=== PATIENT | female | born 1965 | race Caucasian/White ===

== ENCOUNTER 2023-04-13 20:56 | Inpatient (IN) | payer MEDICARE, MEDICAID, SELFPAY ==
[2023-04-13] VITALS (15 sets, daily range): BP systolic 122–181; BP diastolic 64–103; BMI 24.9; BMI 24.6
--- NOTE | 2023-04-13 16:54 | ED.GENMED ---
History of Present Illness
<Sepideh Garcia PA-C - Last Filed: 04/15/23 13:44>
General
Chief Complaint: Abnormal Lab Value
Source: director of healthcare systems
Exam Limitations: developmental stage
Time Seen by Provider: 04/13/23 16:36
Nursing documentation reviewed up to this point in time: agreed with
Travel History
Have you had any contact with someone who has COVID-19?: No
Do you have any symptoms of coronavirus? Fever > 100 degrees, chills, cough, shortness of breath, sore throat, loss of taste or smell, muscle aches, or headache?: No
History of Present Illness
History of Present Illness:
PT IS A 57 Y/O F from [facility], lives on own but has / caregiving due to intellectual disability
h/o anxiety, hld
here from for diarrhea (unknown episodes and nature of diarrhea) ,c/o abdominal pain and dark urine today
apparently according to staff with her, pt had none of these symptoms known to them yesterday
pt had labs and urine at showing wbc 17, nitrite pos urine with ketones, bacteria, bili, LE
they told the staff that because of her diarrhea, they couldn't r/o c diff so they sent her to the ER. they also were concerned about her hydration status
pt has not had a known fever, vomiting, back pain, kidney stones, cough.
Past History
<Sepideh Garcia PA-C - Last Filed: 04/15/23 13:44>
Past History
ED Past Medical History: Hypothyroidism, Psychiatric and Other (Mild mental retardation, adjustment disorder)
Social History
Tobacco: Non-smoker
Alcohol: None
Drug: None
Living: other (halfway)
Family History
Family History: Negative Diabetes, Hypertension or CAD
Review of Systems
<GRACIELA Monet Last Filed: 04/15/23 13:44>
Review of Systems
Allergies reviewed?: Yes
Unable to obtain full review of systems at this time due to: other (intellectual delay)
All Other Systems: Not applicable
Phy Exam
<Sepideh Garcia PA-C - Last Filed: 04/15/23 13:44>
Physical Exam
Physical Exam:
GENERAL: Alert , in no apparent distress
very anxious
EYE: pupils equal and reactive
NECK: Supple
ENT: o/p clr, dry mouth
CARDIAC: Regular rate and rhythm .
LUNGS: Clear breath sounds bilaterally, no acute respiratory distress, no wheezes/rales/rhonchi
ABDOMEN: Soft, without focal tenderness, no r/g, no cvat, normal bowel sounds
NEUROLOGICAL: Alert and oriented, no focal neuro deficits
SKIN: Warm and dry, skin intact.
MUSCULOSKELETAL: No edema, well perfused. neg mich's sign
PSYCH: intellectual delay; anxious, uncooperative
Course
<Sepideh Garcia PA-C - Last Filed: 04/15/23 13:44>
Orders/Labs/Results
Orders:
Orders
04/13/23 17:00
CT Abd/Pel (IV only)-DH only Urgent
Comment:
Reason For Exam: uti, abd pain, diarrhea, intellectual delay
04/13/23 17:11
Straight cath- Treatment ONCE
0.9% Sodium Chloride 1000 ml [Nss] 1,000 ml IV BOLUS
04/13/23 17:12
CefTRIAXone [Rocephin] 1,000 mg IV NOW STA
04/13/23 17:14
Ketamine Concentrate Injection [Ketamine HCl] 220 mg IM NOW STA
04/13/23 18:05
Complete Blood Count/With Diff Urgent
Comprehensive Metabolic Panel Urgent
Magnesium Urgent
Comment: ADD ON
04/13/23 18:24
Urinalysis Reflex To Culture Urgent
Date Specimen was Collected: 04/13/23
Time Specimen was Collected: 18:23
Urine Microscopic Reflex Cult Urgent
04/13/23 18:29
Sterile Water [Sterile Water For Injection] 10 ml .ROUTE .[facility]-MED ONE
04/13/23 18:53
Blood Culture Q30M
MARIAM Source: Blood/Venous
Specimen Description:
Blood Culture Q30M
MARIAM Source: Blood/Venous
Specimen Description:
04/13/23 19:09
STOOL [C difficile Antigen & Toxins] Urgent
MARIAM Source: Feces/Stool
Specimen Description:
Stool Culture Urgent
MARIAM Source: Feces/Stool
Specimen Description:
MetroNIDAZOLE 500 MG/100 ML [Flagyl 500 mg] 100 ml IV NOW
04/13/23 20:24
Lactate Level [Lactic Acid] Urgent
04/13/23 20:25
Admit/Transfer Patient As Directed
Co-Sign Provider:
Level of Care: Inpatient admission
Assign to:: Medical/Surgical
Physician / Group: Aide Christianson
Diagnosis: colitis
Reason for Hospitalization: colitis
Expected length of stay greater than two midnights?: Yes
ELOS- Estimated Length of Stay in days: 3
I certify the patient meets the requirements for IP care: Yes
04/13/23 20:30
Code Status As Directed
Resuscitation Status: Full Code
04/13/23 20:38
Lovelock Carbonate Extended Rel [Lithobid (Extended Release)] 600 mg PO NOW STA
04/13/23 21:23
0.9% Sodium Chloride 1000 ml [Nss] 1,000 ml IV 100 mls/hr
Acetaminophen [Tylenol] 650 mg PO Q4HPRN PRN
Melatonin 3 mg PO HSPRN PRN
04/13/23 21:23
Activity As Directed
Activity Level: As Tolerated
Vital Signs As Directed
Frequency: Per unit guidelines
DX Deep Vein Thrombosis Video Routine
04/13/23 22:00
Quetiapine Fumarate [Seroquel] 200 mg PO HS
04/14/23 02:00
MetroNIDAZOLE 500 MG/100 ML [Flagyl 500 mg] 100 ml IV Q8H
04/14/23 07:16
Basic Metabolic Panel IN AM
Complete Blood Count/With Diff IN AM
Lovelock IN AM
Magnesium IN AM
04/14/23 08:00
Atorvastatin [Lipitor] 20 mg PO DAILY
Budesonide [Pulmicort] 0.5 mg INH R BID
Clonazepam [Klonopin] 0.5 mg PO DAILY
Pantoprazole [Protonix] 40 mg PO DAILY
Quetiapine Fumarate [Seroquel] 50 mg PO BID AT 0800,1700
04/14/23 18:00
CefTRIAXone [Rocephin] 1,000 mg IV Q24H
Enoxaparin Sodium [Lovenox] 40 mg SC QPM
04/14/23 20:00
Lovelock Carbonate Extended Rel [Lithobid (Extended Release)] 600 mg PO DAILY@1999
Abnormal Lab Results
04/13/23 04/13/23
18:05 18:24
WBC 20.6 H 10^3/uL
(4.8-10.8)
MPV 10.9 H fL
(7.4-10.4)
Abs Immat Gran (auto) 0.1 H 10^3/uL
(0-0.05)
Absolute Neuts (auto) 18.7 H 10^3/uL
(1.4-6.5)
Absolute Lymphs (auto) 0.6 L 10^3/uL
(1.2-3.4)
Absolute Monos (auto) 1.1 H 10^3/uL
(0.1-0.6)
Immature Gran % 0.7 H %
(0-0.5)
Neutrophils % 90.6 H %
(42.2-75.2)
Lymphocytes % 3.0 L %
(20.5-51.1)
Sodium 133 L mmol/L
(135-145)
Carbon Dioxide 17 L mmol/L
(22-30)
Glucose 155 H mg/dl
(70-99)
Magnesium 2.4 H mg/dl
(1.6-2.3)
Alkaline Phosphatase 128 H U/L
(38-126)
Urine Ketones Trace A
(Negative)
Urine Bilirubin 1+ A
(Negative)
Urine Urobilinogen 2+ A
(Neg - 1+)
Leukocyte Esterase Rfl Trace A
(Negative)
04/13/23 18:05
04/13/23 18:05
Vital Signs
Initial and Last Documented VS:
Initial Vital Signs
Temp Pulse Resp Pulse Ox
97.7 F 89 18 96
04/13/23 15:41 04/13/23 15:41 04/13/23 15:41 04/13/23 15:41
Last Documented Vital Signs
Temp Pulse Resp BP Pulse Ox
97.5 F 94 16 153/94 97
04/15/23 07:25 04/15/23 08:41 04/15/23 08:41 04/15/23 07:25 04/15/23 08:41
<Chano Hennessy MD - Last Filed: 04/13/23 19:49>
Orders/Labs/Results
Orders:
Orders
04/13/23 17:00
CT Abd/Pel (IV only)-DH only Urgent
Comment:
Reason For Exam: uti, abd pain, diarrhea, intellectual delay
04/13/23 17:11
Straight cath- Treatment ONCE
0.9% Sodium Chloride 1000 ml [Nss] 1,000 ml IV BOLUS
04/13/23 17:12
CefTRIAXone [Rocephin] 1,000 mg IV NOW STA
04/13/23 17:14
Ketamine Concentrate Injection [Ketamine HCl] 220 mg IM NOW STA
04/13/23 18:05
Complete Blood Count/With Diff Urgent
Comprehensive Metabolic Panel Urgent
Magnesium Urgent
Comment: ADD ON
04/13/23 18:24
Urinalysis Reflex To Culture Urgent
Date Specimen was Collected: 04/13/23
Time Specimen was Collected: 18:23
Urine Microscopic Reflex Cult Urgent
04/13/23 18:29
Sterile Water [Sterile Water For Injection] 10 ml .ROUTE .[facility]
04/13/23 18:53
Blood Culture Q30M
MARIAM Source: Blood/Venous
Specimen Description:
Blood Culture Q30M
MARIAM Source: Blood/Venous
Specimen Description:
04/13/23 19:09
STOOL [C difficile Antigen & Toxins] Urgent
MARIAM Source: Feces/Stool
Specimen Description:
Stool Culture Urgent
MARIAM Source: Feces/Stool
Specimen Description:
MetroNIDAZOLE 500 MG/100 ML [Flagyl 500 mg] 100 ml IV NOW
04/13/23 20:24
Lactate Level [Lactic Acid] Urgent
04/13/23 20:25
Admit/Transfer Patient As Directed
Co-Sign Provider:
Level of Care: Inpatient admission
Assign to:: Medical/Surgical
Physician / Group: Aide Christianson
Diagnosis: colitis
Reason for Hospitalization: colitis
Expected length of stay greater than two midnights?: Yes
ELOS- Estimated Length of Stay in days: 3
I certify the patient meets the requirements for IP care: Yes
04/13/23 20:30
Code Status As Directed
Resuscitation Status: Full Code
04/13/23 20:38
Lovelock Carbonate Extended Rel [Lithobid (Extended Release)] 600 mg PO NOW STA
04/13/23 21:23
0.9% Sodium Chloride 1000 ml [Nss] 1,000 ml IV 100 mls/hr
Acetaminophen [Tylenol] 650 mg PO Q4HPRN PRN
Melatonin 3 mg PO HSPRN PRN
04/13/23 21:23
Activity As Directed
Activity Level: As Tolerated
Vital Signs As Directed
Frequency: Per unit guidelines
DX Deep Vein Thrombosis Video Routine
04/13/23 22:00
Quetiapine Fumarate [Seroquel] 200 mg PO HS
04/14/23 02:00
MetroNIDAZOLE 500 MG/100 ML [Flagyl 500 mg] 100 ml IV Q8H
04/14/23 07:16
Basic Metabolic Panel IN AM
Complete Blood Count/With Diff IN AM
Lovelock IN AM
Magnesium IN AM
04/14/23 08:00
Atorvastatin [Lipitor] 20 mg PO DAILY
Budesonide [Pulmicort] 0.5 mg INH R BID
Clonazepam [Klonopin] 0.5 mg PO DAILY
Pantoprazole [Protonix] 40 mg PO DAILY
Quetiapine Fumarate [Seroquel] 50 mg PO BID AT 0800,1700
04/14/23 18:00
CefTRIAXone [Rocephin] 1,000 mg IV Q24H
Enoxaparin Sodium [Lovenox] 40 mg SC QPM
04/14/23 20:00
Lovelock Carbonate Extended Rel [Lithobid (Extended Release)] 600 mg PO DAILY@1999
Abnormal Lab Results
04/13/23 04/13/23
18:05 18:24
WBC 20.6 H 10^3/uL
(4.8-10.8)
MPV 10.9 H fL
(7.4-10.4)
Abs Immat Gran (auto) 0.1 H 10^3/uL
(0-0.05)
Absolute Neuts (auto) 18.7 H 10^3/uL
(1.4-6.5)
Absolute Lymphs (auto) 0.6 L 10^3/uL
(1.2-3.4)
Absolute Monos (auto) 1.1 H 10^3/uL
(0.1-0.6)
Immature Gran % 0.7 H %
(0-0.5)
Neutrophils % 90.6 H %
(42.2-75.2)
Lymphocytes % 3.0 L %
(20.5-51.1)
Sodium 133 L mmol/L
(135-145)
Carbon Dioxide 17 L mmol/L
(22-30)
Glucose 155 H mg/dl
(70-99)
Magnesium 2.4 H mg/dl
(1.6-2.3)
Alkaline Phosphatase 128 H U/L
(38-126)
Urine Ketones Trace A
(Negative)
Urine Bilirubin 1+ A
(Negative)
Urine Urobilinogen 2+ A
(Neg - 1+)
Leukocyte Esterase Rfl Trace A
(Negative)
04/13/23 18:05
04/13/23 18:05
Vital Signs
Initial and Last Documented VS:
Initial Vital Signs
Temp Pulse Resp Pulse Ox
97.7 F 89 18 96
04/13/23 15:41 04/13/23 15:41 04/13/23 15:41 04/13/23 15:41
Last Documented Vital Signs
Temp Pulse Resp BP Pulse Ox
97.5 F 94 16 153/94 97
04/15/23 07:25 04/15/23 08:41 04/15/23 08:41 04/15/23 07:25 04/15/23 08:41
<Sepideh Garcia PA-C - Last Filed: 04/15/23 13:44>
MDM/Problems Addressed
Differential Diagnosis Includes:
uti, kidney stone, colitis, sepsis
MDM/Problems Addressed:
57 y/o F with h/o intellectual delay and severe anxiety here from urgetn care with abnormal labs
noticed by staff to have a few episodes of diarrhea today
she also compalined of abd pain
but the staff says that she is afraid to say that she has pain or sypmtoms because she doesn't want to stay in the hospital
pt has also had very dark urine
no fever, vomiting
pt appears vyery anxious
would not move from the chair to the stretcher for exam
had to convince her to take her coat off.
examinng her in the chair, pt was not found ot have focal tenderness
pt was seen by ed attending
felt most safe to evaluate with CT imaging
the concern for c diff does not seem likely based on a few episodes of dairrhea today only; but the concern being about infected stone or pyelo is more likely
so given her anxiety and inability to cooperate, we will need to sedate her for this testing
the plan is to get IM ketamine and then obtain IV placement with labs and CT while she is sedated.
1830 - ketamine im and IV placement and CT went well
pt is sedated and stable vitals
mild tachy originally but pt was very anxious and crying prior to this procedure
signed out to ED attending pending ct.
<Sepideh Garcia PA-C - Last Filed: 04/15/23 13:44>
*Critical Care Note
Total Time (30-74mins, 75-104mins- exclusive of procedures): Not Applicable
ED Attending Note
<Sepideh Garcia PA-C - Last Filed: 04/15/23 13:44>
-
Portions of this chart may have been created with voice recognition software.� Occasional wrong word or��sound alike� substitutions may have occurred due to the inherent limitations of voice recognition software.
<Chano Hennessy MD - Last Filed: 04/13/23 19:49>
ED Attending Note
Patient seen and examined by attending physician: Yes
ED Attending Note:
I have seen and evaluated the patient with a [id number] encounter. I have spoken to the advance practicer provider and involved in the medical history, the physical exam, medical decision making.
Evaluation and management service: agree unless noted differently below.
Results interpretation: agree unless noted differently below.
Focused HPI: 57-year-old female with a past medical history of hyperlipidemia, anxiety, intellectual disability presents to the emergency room from custodial accompanied by staff members for evaluation of abdominal pain. Unclear onset patient is
very anxious and does not meaningfully participate in history. Apparently staff says that she started complaining today but says that she typically will hide symptoms until they are quite severe. Today also had some diarrhea. She had some dark
urine today as well. Initially went to urgent care and there was a question of UTI on urgent care urinalysis however with her abdominal pain she was sent to the ER for evaluation. No fever or chills. No vomiting.
Physical exam: Very anxious. Her abdomen is soft, tender to palpation across the lower abdomen. She is tachycardic but has otherwise normal vitals.
Medical Decision Makin-year-old female with intellectual disability presents for abdominal pain with diarrhea. Question of UTI at urgent care. Very anxious�gets agitated and restless in the hospital now on chronic testing here. Sedated with
ketamine to help facilitate testing. Labs sent off including CBC which showed a leukocytosis to 20 with 90% neutrophils. CMP no clinically significant abnormalities. Urinalysis negative for infection here. Sent for CT of the abdomen pelvis which
shows findings consistent with colitis. With leukocytosis and tachycardia we sent blood cultures off. Will cover with IV antibiotics. Discussed with GI for consultation. Discussed with hospitalist for admission.
Discharge Plan
Departure
Patient Disposition: Admit
Date of Disposition: 04/13/23
Time of Disposition: 19:44
Admit to doctor: Sammy
Presentation/result/management discussed w/ accepting MD/DO: Hospitalist
Discharge Problem:
Colitis, Sepsis
Interventions
Interventions:
*Risk Screen - Suicide Last Done: 04/13/23 21:59
*General Assessment Last Done: 04/13/23 21:28
*Neglect/Abuse Screening Last Done: 04/13/23 21:28
ED- Fall Risk Assessment Last Done: 04/13/23 21:28
*ED COVID-19 Vaccine History Last Done: 04/13/23 21:28
*Nursing Disposition Last Done: 04/13/23 21:28
Discharge Date and Time
Discharge Date/Time: 04/13/23 21:29
[2023-04-13] MEDS: KETAMINE HCL 220 MG IM (18:00)
[2023-04-13 18:19] LABS: % Basophils 0.2 % (0-2); % Immature Granulocytes 0.7 % (0-0.5); % Monocytes 5.5 % (1.7-9.3); % Neutrophils 90.6 % (42.2-75.2); Absolute Basophils 0.1 10^3/uL (0-0.2); Absolute Immature Granulocytes 0.1 10^3/uL (0-0.05); Absolute Lymphocytes 0.6 10^3/uL (1.2-3.4); Absolute Monocytes 1.1 10^3/uL (0.1-0.6); Absolute Neutrophils 18.7 10^3/uL (1.4-6.5); Hemoglobin 13.9 g/dL (12.0-16.0); Mean Corp Hgb Conc. 34.8 g/dL (33.0-37.0); Mean Corpuscular Hgb 30.8 pg (27.0-31.0); Mean Corpuscular Volume 88.5 fL (81.0-99.0); Mean Platelet Volume 10.9 fL (7.4-10.4); Nucleated Red Blood Cells % 0 %; Platelet Count 276 10^3/uL (130-400); Red Blood Cell Count 4.52 10^6/uL (4.20-5.40); Red Cell Dist. Width 13.7 % (11.5-14.5); White Blood Cell Count 20.6 10^3/uL (4.8-10.8)
[2023-04-13] MEDS: NSS 1000 IV ×2 (18:23→22:22)
[2023-04-13 18:32] LABS: ALT (SGPT) 32 U/L (0-35); AST (SGOT) 36 U/L (14-36); Albumin 4.7 g/dl (3.5-5.0); Alkaline Phosphatase 128 U/L (38-126); Blood Urea Nitrogen 16 mg/dl (7-17); Calcium 9.9 mg/dl (8.4-10.2); Carbon Dioxide 17 mmol/L (22-30); Chloride 104 mmol/L (98-107); Estimated Creatinine Clearance 57 ml/min; Glucose 155 mg/dl (70-99); Potassium 4.4 mmol/L (3.5-5.1); Sodium 133 mmol/L (135-145); Total Bilirubin 0.6 mg/dl (0.2-1.3); Total Protein 7.6 g/dl (6.3-8.2); eGFR > 60.00
[2023-04-13 18:33] LABS: Urine Albumin Trace (Neg - Trace); Urine Bilirubin 1+ (Negative); Urine Character Clear (Clear); Urine Color Amber; Urine Glucose Negative (Negative); Urine Ketone Trace (Negative); Urine Leukocyte Trace (Negative); Urine Nitrite Negative (Negative); Urine Occult Blood Negative (Negative); Urine Specific Gravity 1.015 (<1.030); Urine Urobilinogen 2+ (Neg - 1+)
[2023-04-13 18:46] LABS: Urine Red Blood Cell None Seen /HPF (0-2); Urine Squamous Cell 0-2 /LPF (Few); Urine White Cell 0-2 /HPF (0-5)
[2023-04-13] MEDS: ROCEPHIN 1000 MG IV (18:54)
[2023-04-13] MEDS: FLAGYL 500 MG 100 IV (19:19)
--- NOTE | 2023-04-13 20:01 | HPS.HSE ---
Family Physician
-
Family Physician: Guanako Reza PA-C
Chief Complaint
-
diarrhea
History of Present Illness
Ms. Maritza Pickard is a 57 yo woman (lives on own with 19/09 caregiving due to intellectual disability) with hx hypothyroidism sent to the ER for diarrhea and abdominal pain.
History mainly obtained from caregiver at bedside. Patient has left lower quadrant abdominal discomfort. She had diarrhea about 3-4 times today. Not black or bloody. No fevers or chills.
She denies chest pain or shortness of breath.
Currently patient requesting diet coke.
Patient has her own house; has 19/09 caregivers.
Medical History
Past Medical History
Past Medical History: Reports Other ((lives on own with 19/09 caregiving due to intellectual disability) with hx hypothyroidism)
Past Surgical History: Reports None
Social History
Tobacco: Non-smoker
Alcohol: None
Family History
Family History: Not pertinent
Allergies / Home Medications
Allergies reflects when Allergies were last updated in [facility].
Home Medications with original date entered in [facility]
Allergy/Medication List:
Allergies
Allergy/AdvReac Type Severity Reaction Status Date / Time
aripiprazole [From Abilify] Allergy Unknown Unknown Verified 04/13/23 15:40
Anticholinergics Allergy Unknown Verified 04/13/23 15:40
*RETIRED-06/13/12
[Anticholinergics - Other]
poison nurys extract Allergy Unknown Verified 04/13/23 15:45
poison oak extract Allergy Unknown Verified 04/13/23 15:45
risperidone [From Risperdal] Allergy Eyes going Verified 04/13/23 15:40
up in head
- couldn't
bring back
down
triazolam [From Halcion] Allergy Unknown Verified 04/13/23 15:40
DPT Allergy Unknown Uncoded 11/17/20 09:53
MELARILL Allergy Unknown Uncoded 11/17/20 09:53
non-generic clonidine Allergy Unknown Uncoded 11/17/20 09:53
Home Medications
clonazepam 0.5 mg tablet 0.5 mg PO DAILY 07/13/20
lithium carbonate 300 mg tablet,extended release 600 mg PO DAILY@199907/13/20
quetiapine 100 mg tablet 200 mg PO HS 07/13/20
quetiapine 50 mg tablet (Seroquel) 50 mg PO BID 07/13/20
budesonide 0.5 mg/2 mL suspension for nebulization 0.5 mg inhalation R BID 04/13/23
melatonin 3 mg tablet 3 mg PO HS PRN sleep 04/13/23
multivitamin (One Daily Essential tablet) 1 tab PO DAILY 04/13/23
omeprazole 20 mg capsule,delayed release 20 mg PO DAILY 04/13/23
simvastatin 40 mg tablet 40 mg PO DAILY 04/13/23
Review of Systems
-
History Source: Patient
A 12 point ROS was completed and negative except as noted: Yes
Physical Exam
Vital Signs
Vital Signs
Temp Pulse Resp BP Pulse Ox
97.7 F 108 23 126/78 100
04/13/23 15:41 04/13/23 19:20 04/13/23 19:20 04/13/23 19:20 04/13/23 19:20
Physical Exam
General: Comfortable and Other (in no acute distress)
HEENT: PERRLA
Respiratory: Clear; No Wheezes
Cardiac: S1/S2 and Regular Rhythm
GI: Other (mildly tender LLQ, no rebound or guarding )
Musculoskeletal: No Edema
Skin: Warm and Dry; No Rash
Neuro: AO x 3 and Other (intellectual disability; repetitive about asking for diet coke )
Psych: Calm
Laboratory Results
-
04/13/23 18:05
04/13/23 18:05
Laboratory Results
Total Bilirubin 0.6 mg/dl (0.2-1.3) 04/13/23 18:05
AST 36 U/L (14-36) 04/13/23 18:05
ALT 32 U/L (0-35) 04/13/23 18:05
Alkaline Phosphatase 128 U/L (38-126) H 04/13/23 18:05
Data Reviewed
-
Diagnostic Radiology: Report Reviewed by me
Lab Data: Labs Reviewed by me
Impression/Plan
-
Ms. Maritza Pickard is a 57 yo woman (lives on own with 19/09 caregiving due to intellectual disability) with hx hypothyroidism sent to the ER for diarrhea and abdominal pain which started earlier today.
Triage VS: T 36.5, P 89, RR 18, SpO2 96%
LABS: WBC 20.6, Hg 13.9, PLT 276, Na 133, K+ 4.4, CO2 17, Glucose 155
CT A/P - with IV, no oral
IMPRESSION:
Limited evaluation without oral contrast and without ability to obtain delayed postintravenous contrast images.
Suggestion of some areas of wall thickening of the large bowel, including the descending colon which at least must be SUSPICIOUS FOR COLITIS. No intestinal obstruction, free air or gross findings to suggest colonic pneumatosis.
MAR: Ceftriaxone, Flagyl, IVF
Diarrhea
Colitis
Sepsis 2/2 Colitis (WBC, Elevated RR)
non-gap metabolic acidosis
-F/U C. Diff and stool culture (not yet collected)
-admit to med/surg
-IVF
-IV Ceftriaxone/Flagyl
-clears for now
-consider GI consult if slow improvement
hX aNxiety/Depression
-WASTEWATER DESIGN ENGINEER Clonazepam
WASTEWATER DESIGN ENGINEER Quetiapine
-WASTEWATER DESIGN ENGINEER LIthium
HLD
-WASTEWATER DESIGN ENGINEER Statin
DVT PPx Lovenox subQ
FULL CODE
[2023-04-13 20:47] LABS: Lactic Acid 1.5 mmol/L (0.7-2.0)
[2023-04-13] MEDS: LITHOBID (EXTENDED RELEASE) 600 MG PO (20:54)
[2023-04-13] MEDS: ZOFRAN 4 MG IV (22:21)
[2023-04-13] MEDS: SEROQUEL 200 MG PO (22:21)
[2023-04-13 23:34] LABS: Magnesium 2.4 mg/dl (1.6-2.3)
[2023-04-14] MEDS: FLAGYL 500 MG 100 IV ×3 (01:34→17:16)
[2023-04-14] MEDS: PULMICORT 0.5 MG INH ×2 (07:36→19:36)
[2023-04-14 08:08] LABS: % Basophils 0.3 % (0-2); % Eosinophils 0.2 % (0-6); % Immature Granulocytes 0.4 % (0-0.5); % Lymphocytes 13.8 % (20.5-51.1); % Neutrophils 75.3 % (42.2-75.2); Absolute Immature Granulocytes 0.1 10^3/uL (0-0.05); Absolute Lymphocytes 1.7 10^3/uL (1.2-3.4); Absolute Monocytes 1.2 10^3/uL (0.1-0.6); Absolute Neutrophils 9.3 10^3/uL (1.4-6.5); Hemoglobin 12.1 g/dL (12.0-16.0); Mean Corp Hgb Conc. 34.6 g/dL (33.0-37.0); Mean Corpuscular Hgb 31.2 pg (27.0-31.0); Mean Corpuscular Volume 90.2 fL (81.0-99.0); Nucleated Red Blood Cells % 0 %; Red Blood Cell Count 3.88 10^6/uL (4.20-5.40); Red Cell Dist. Width 13.7 % (11.5-14.5); White Blood Cell Count 12.3 10^3/uL (4.8-10.8)
[2023-04-14 08:21] VITALS: BP 108/63
[2023-04-14 08:56] LABS: Blood Urea Nitrogen 10 mg/dl (7-17); Calcium 8.8 mg/dl (8.4-10.2); Carbon Dioxide 16 mmol/L (22-30); Chloride 113 mmol/L (98-107); Estimated Creatinine Clearance 57 ml/min; Glucose 94 mg/dl (70-99); Lithium 1.2 mmol/L (0.6-1.2); Magnesium 2.2 mg/dl (1.6-2.3); Potassium 4.1 mmol/L (3.5-5.1); Sodium 137 mmol/L (135-145); eGFR > 60.00
[2023-04-14] MEDS: NSS 1000 IV (09:12)
[2023-04-14] MEDS: KLONOPIN 0.5 MG PO (09:13)
[2023-04-14] MEDS: SEROQUEL 50 MG PO ×2 (09:13→17:15)
[2023-04-14] MEDS: PROTONIX 40 MG PO (09:13)
[2023-04-14] MEDS: LIPITOR 20 MG PO (09:13)
[2023-04-14 09:26] LABS: Mean Platelet Volume 11.3 fL (7.4-10.4); Platelet Count 219 10^3/uL (130-400)
--- NOTE | 2023-04-14 14:12 | W.PN.HOSP.TC ---
Today's Communication/Plan
-
FLD
IVF
abx
cultures
monitor bicarb
Assessment / Plan
Assessment / Plan
General: Comfortable and Other (in no acute distress)
HEENT: PERRLA
Respiratory: Clear; No Wheezes
Cardiac: S1/S2 and Regular Rhythm
GI: Other (mildly tender LLQ, no rebound or guarding )
Musculoskeletal: No Edema
Skin: Warm and Dry; No Rash
Neuro: AO x 3 and Other (intellectual disability; repetitive about asking for diet coke )
Psych: Calm
Diarrhea
Colitis
Sepsis 2/2 Colitis (WBC, Elevated RR)
non-anion gap metabolic acidosis
-F/U C. Diff and stool culture (not yet collected)
-admit to med/surg
-IVF
-IV Ceftriaxone/Flagyl
-Advance to FLD
-consider GI consult if slow improvement
hX aNxiety/Depression
-DICTAPHONE MECHANIC Clonazepam
DICTAPHONE MECHANIC Quetiapine
-DICTAPHONE MECHANIC LIthium
HLD
-DICTAPHONE MECHANIC Statin
DVT PPx Lovenox subQ
FULL CODE
Anticipated Discharge: 24 - 48 hours
Subjective/Interval History
-
Date of Service: April 14, 2023
Pain improved, no diarrhea this morning
Objective Data
-
Labs:
Laboratory Results
04/14/23
07:16
WBC 12.3 H
Hgb 12.1
Hct 35.0 L
Plt Count 219 D
Sodium 137
Potassium 4.1
Chloride 113 H
Carbon Dioxide 16 L
BUN 10
Creatinine 0.8
Glucose 94
Calcium 8.8
Vital Signs:
Vital Signs
Temp Pulse Resp BP Pulse Ox
98 F 96 18 108/63 97
04/14/23 08:21 04/14/23 08:21 04/14/23 08:21 04/14/23 08:21 04/14/23 08:21
Review of Systems
-
History Source: Patient
All other systems: Not reviewed unless documented
Data Reviewed
-
CT Scan: Image personally visualized and interpreted and Report Reviewed by me
Labs: Labs Reviewed by me
[2023-04-14 15:54] VITALS: BP 124/78
[2023-04-14] MEDS: LR 1000 IV (16:18)
--- NOTE | 2023-04-14 16:43 | CM ---
Patient seen bedside with private rn patient care and residential supply chain procurement manager Doug.
Patient lives in her own apartment with 19/09 care.
Patient ambulates without assistive devices.
Patient able to answer questions when asked.
PCP: Dr Reza
Pharmacy: [facility]
Per Doug, no report needs to be called, just discharge instuctions.
Plan: home no needs anticipated.
[2023-04-14] MEDS: LOVENOX 40 MG SC (17:14)
[2023-04-14] MEDS: ROCEPHIN 1000 MG IV (17:15)
[2023-04-14] MEDS: STERILE WATER FOR INJECTION 10 ML IV (17:15)
[2023-04-14] MEDS: LITHOBID (EXTENDED RELEASE) 600 MG PO (20:48)
[2023-04-14] MEDS: SEROQUEL 200 MG PO (20:49)
[2023-04-14 23:35] VITALS: BP 136/87
[2023-04-15] MEDS: FLAGYL 500 MG 100 IV ×2 (01:24→09:55)
[2023-04-15] MEDS: LR 1000 IV ×2 (01:24→09:56)
[2023-04-15 06:32] LABS: Hematocrit 37.3 % (37.0-47.0); Hemoglobin 12.5 g/dL (12.0-16.0); Mean Corp Hgb Conc. 33.5 g/dL (33.0-37.0); Mean Corpuscular Hgb 30.3 pg (27.0-31.0); Mean Corpuscular Volume 90.5 fL (81.0-99.0); Mean Platelet Volume 11.1 fL (7.4-10.4); Platelet Count 229 10^3/uL (130-400); Red Blood Cell Count 4.12 10^6/uL (4.20-5.40); Red Cell Dist. Width 13.6 % (11.5-14.5); White Blood Cell Count 8.9 10^3/uL (4.8-10.8)
[2023-04-15 07:09] LABS: ALT (SGPT) 22 U/L (0-35); AST (SGOT) 32 U/L (14-36); Albumin 3.3 g/dl (3.5-5.0); Alkaline Phosphatase 92 U/L (38-126); Blood Urea Nitrogen 8 mg/dl (7-17); Calcium 9.4 mg/dl (8.4-10.2); Carbon Dioxide 20 mmol/L (22-30); Chloride 108 mmol/L (98-107); Estimated Creatinine Clearance 65 ml/min; Glucose 107 mg/dl (70-99); Magnesium 1.9 mg/dl (1.6-2.3); Sodium 140 mmol/L (135-145); Total Bilirubin 0.5 mg/dl (0.2-1.3); Total Protein 5.7 g/dl (6.3-8.2); eGFR > 60.00
[2023-04-15 07:25] VITALS: BP 153/94
[2023-04-15] MEDS: SEROQUEL 50 MG PO (07:58)
[2023-04-15] MEDS: KLONOPIN 0.5 MG PO (07:58)
[2023-04-15] MEDS: LIPITOR 20 MG PO (07:58)
[2023-04-15] MEDS: PROTONIX 40 MG PO (07:58)
[2023-04-15] MEDS: PULMICORT 0.5 MG INH (08:39)
--- NOTE | 2023-04-15 11:46 | CM ---
Patient seen bedside with caregiver, Adelaida, discussed plan for discharge today. Adelaida will be providing transportation home. CM left voicemail for patients primary contact, Doug, to discuss IMM and discharge. CM will continue to follow for
discharge planning needs.
Plan; home with / caregivers, Adelaida to provide transportation home.
--- NOTE | 2023-04-15 12:23 | W.PN.HOSP.TC ---
Addendum entered and electronically signed by Terry Monroe MD 04/15/23 15:54:
[id number]
Original Note:
Today's Communication/Plan
-
Complete 10-day course of antibiotics, cefdinir and Flagyl for additional 9 days
Follow BMP outpatient
Low residue diet
GI follow-up outpatient
Assessment / Plan
Assessment / Plan
General: Comfortable and Other (in no acute distress)
HEENT: PERRLA
Respiratory: Clear; No Wheezes
Cardiac: S1/S2 and Regular Rhythm
GI: Other (mildly tender LLQ, no rebound or guarding )
Musculoskeletal: No Edema
Skin: Warm and Dry; No Rash
Neuro: AO x 3 and Other (intellectual disability; repetitive about asking for diet coke )
Psych: Calm
Diarrhea
Colitis
Sepsis 2/2 Colitis
non-anion gap metabolic acidosis
-improved with abx
-DC to complete 10 day course as rapid improvement; DC on cefdinir 300mg BID and Flagyl 500mg q8h x 9 additional days to complete 10 day course
-IVF
Bicarb improving, f/u bmp outpatient
LRD
-GI f/u outpatient
hX aNxiety/Depression
-PUBLIC RELATIONS SPECIALIST Clonazepam
PUBLIC RELATIONS SPECIALIST Quetiapine
-PUBLIC RELATIONS SPECIALIST LIthium
HLD
-PUBLIC RELATIONS SPECIALIST Statin
DVT PPx Lovenox subQ
FULL CODE
More than 30 minutes spent in discharge including
Final examination of the patient
Summarizing hospital stay
Instructions for continuing care to all relevant caregivers
Preparation of discharge records, prescriptions, and referral forms
Total time spent (35 in minutes):
Anticipated Discharge: Today
Subjective/Interval History
-
Date of Service: April 15, 2023
Diarrhea resolved, patient feeling well. Tolerating diet
Objective Data
-
Labs:
Laboratory Results
04/15/23 04/15/23
05:49 11:49
WBC 8.9
Hgb 12.5
Hct 37.3
Plt Count 229
Sodium 140 Pending
Potassium 4.0 Pending
Chloride 108 H Pending
Carbon Dioxide 20 L Pending
BUN 8 Pending
Creatinine 0.7 Pending
Glucose 107 H Pending
Calcium 9.4 Pending
Total Bilirubin 0.5
AST 32
ALT 22
Alkaline Phosphatase 92
Vital Signs:
Vital Signs
Temp Pulse Resp BP Pulse Ox
97.5 F 94 16 153/94 97
04/15/23 07:25 04/15/23 08:41 04/15/23 08:41 04/15/23 07:25 04/15/23 08:41
I&O
04/14/23 04/15/23 04/16/23
06:59 06:59 06:59
Intake Total 1440 / 1440
Balance 1440 / 1440
Review of Systems
-
History Source: Patient
All other systems: Not reviewed unless documented
Data Reviewed
-
CT Scan: Image personally visualized and interpreted and Report Reviewed by me
Labs: Labs Reviewed by me
--- NOTE | 2023-04-15 12:27 | W.DS.TRANS ---
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
-
Discharge Instructions:
Discharge Diagnosis/Procedures
Diarrhea
Colitis
Sepsis 2/2 Colitis
non-anion gap metabolic acidosis
Diet Low Fat,Low Cholesterol,Low Residue
Additional Diets low residue diet x 2 weeks
Activity As tolerated
Blood Work BMP in 2 to 3 days following up bicarb
Instructions:
Stand-Alone Forms:
Changes to Home Medications: Yes
Discharge Medications:
DC Medications w/original date entered in [employer] Interpreting
clonazepam 0.5 mg tablet 0.5 mg PO DAILY Mental Health/Anxiety 07/13/20
lithium carbonate 300 mg tablet,extended release 600 mg PO DAILY@1999 Mental Health/Anxiety 07/13/20
quetiapine 100 mg tablet 200 mg PO HS Mental Health/Anxiety 07/13/20
quetiapine 50 mg tablet (Seroquel) 50 mg PO BID Mental Health/Anxiety 07/13/20
budesonide 0.5 mg/2 mL suspension for nebulization 0.5 mg inhalation R BID Lung/Breathing Issues 04/13/23
melatonin 3 mg tablet 3 mg PO HS PRN sleep 04/13/23
multivitamin (One Daily Essential tablet) 1 tab PO DAILY Supplement 04/13/23
omeprazole 20 mg capsule,delayed release 20 mg PO DAILY Gastrointestinal Issue 04/13/23
simvastatin 40 mg tablet 40 mg PO DAILY High Cholesterol 04/13/23
cefdinir 300 mg capsule 300 mg PO Q12H 9 days #18 caps 04/15/23
metronidazole 500 mg tablet 500 mg PO Q8H 9 days #27 tabs 04/15/23
Home Medication Changes
cefdinir 300 mg capsule 300 mg PO Q12H 9 days #18 caps 04/15/23 - 9 days
metronidazole 500 mg tablet 500 mg PO Q8H 9 days #27 tabs 04/15/23 - 9 days
Pending Results: No
[2023-04-15 12:53] LABS: Blood Urea Nitrogen 7 mg/dl (7-17); Calcium 9.3 mg/dl (8.4-10.2); Carbon Dioxide 23 mmol/L (22-30); Chloride 109 mmol/L (98-107); Estimated Creatinine Clearance 65 ml/min; Glucose 94 mg/dl (70-99); Potassium 4.3 mmol/L (3.5-5.1); Sodium 139 mmol/L (135-145); eGFR > 60.00
[2023-04-15 15:30] VITALS: BP 134/86
--- NOTE | 2023-04-15 16:30 | PTCARENOTE ---
Spoke with POMoises Nunez [phone]. Pat made aware that patient will be discharged within the hour, Pat replied that she will notify family of patient's discharge. Discharge instructions reviewed with patient and caregiver. Caregiver is requesting
prescriptions for antibiotics. RN confirmed pharmacy at [facility] with caregiver. Caregiver called patient's home lending officer and they asked for paper scripts for antibiotics. Physician made aware and two paper scripts were delivered to patient's
room and given to caregiver.
The equipment operator warehouse from patient's home called RN and stated, 'We can not take patient back without the Guardian being notified and consent obtained. Business Development Engineer made aware RN spoke with POA/Guardian and updated her on discharge and plan of care.
== END 2023-04-15 16:56 | disposition home or self-care (01) | DRG 872 ==
LOC: 4 WEST ACU 20:56
PROVIDERS: Physician Assistant; ADMITTING PHYSICIAN Student in an Organized Health Care Education/Training Program; ATTENDING PHYSICIAN Internal Medicine; EMERGENCY PHYSICIAN Emergency Medicine; FAMILY PHYSICIAN Physician Assistant Medical
DX: A41.9 Sepsis, unspecified organism (principal); E87.20 Acidosis, unspecified; E03.9 Hypothyroidism, unspecified; K52.9 Noninfective gastroenteritis and colitis, unspecified; F32.A Depression, unspecified; F41.9 Anxiety disorder, unspecified; E78.5 Hyperlipidemia, unspecified; F70 Mild intellectual disabilities
CPT/HCPCS: 51701; 74177; 80048; 80053; 80178; 81003; 81015; 83605; 83735; 85025; 85027; 87040; 94640; 96361; 96365; 96372; 96375; 99285; Q9967

== ENCOUNTER → 2023-10-02 12:04 | Outpatient (REF) | payer MEDICARE, MEDICAID, SELFPAY | LOC: WDC 12:04 | PROVIDERS: ATTENDING PHYSICIAN Physician Assistant Medical | DX: Z12.31 Encounter for screening mammogram for malignant neoplasm of breast (principal) | CPT/HCPCS: 77063; 77067 ==

== ENCOUNTER → 2023-10-06 10:30 | Outpatient (REF) | payer MEDICARE, MEDICAID, SELFPAY | LOC: RAD 10:30 | PROVIDERS: ATTENDING PHYSICIAN Physician Assistant Medical | DX: N83.209 Unspecified ovarian cyst, unspecified side (principal) | CPT/HCPCS: 76856 ==

== ENCOUNTER 2023-12-21 06:37 | Outpatient (RCR) | payer MEDICARE, MEDICAID, SELFPAY | END 2023-12-21 23:59 | disposition home or self-care (01) | LOC: RST 06:37 | PROVIDERS: ATTENDING PHYSICIAN Internal Medicine | DX: R13.12 Dysphagia, oropharyngeal phase (principal) | CPT/HCPCS: 92610 ==

== ENCOUNTER 2024-01-11 14:11 | Outpatient (RCR) | payer MEDICARE, MEDICAID, SELFPAY | END 2024-01-12 14:42 | disposition home or self-care (01) | LOC: RST 14:11 | PROVIDERS: ATTENDING PHYSICIAN Internal Medicine | DX: R13.12 Dysphagia, oropharyngeal phase (principal); G31.84 Mild cognitive impairment of uncertain or unknown etiology | CPT/HCPCS: 92526 ==

== ENCOUNTER → 2024-10-03 16:36 | Outpatient (REF) | payer MEDICARE, MEDICAID, SELFPAY | LOC: WDC 16:36 | PROVIDERS: ATTENDING PHYSICIAN Physician Assistant Medical | DX: Z12.31 Encounter for screening mammogram for malignant neoplasm of breast (principal) | CPT/HCPCS: 77063; 77067 ==

== ENCOUNTER → 2024-10-07 12:47 | Outpatient (REF) | payer MEDICARE, MEDICAID, SELFPAY | LOC: RAD 12:47 | PROVIDERS: ATTENDING PHYSICIAN Physician Assistant Medical; FAMILY PHYSICIAN Internal Medicine Endocrinology, Diabetes & Metabolism | DX: E04.2 Nontoxic multinodular goiter (principal); Z78.0 Asymptomatic menopausal state; Z86.018 Personal history of other benign neoplasm; F43.10 Post-traumatic stress disorder, unspecified; E78.2 Mixed hyperlipidemia | CPT/HCPCS: 76536; 76856 ==